=== PATIENT | male | born 1945 | race Caucasian/White ===

== ENCOUNTER 2019-12-03 08:47 | Outpatient (CLI) | payer BC ==
--- NOTE | 2019-12-03 10:49 | CT ---
CT chest with IV contrast CT abdomen and pelvis with IV and oral contrast HISTORY: Chronic lymphocytic leukemia not having achieved remission. New adenopathy of the axilla and groin. FINDINGS: No comparison available. No parenchymal lung mass, pneumothorax, or focal infiltrate. There is calcification within the arterial structures including the coronary arteries. Nonenlarged, nonspecific lymph nodes are scattered throughout the mediastinum. A small amount of the upper stomach lies above the level of the diaphragm, with oral contrast evident in the hiatal hernia and esophagus. Throughout each axilla, bulky, partially confluent adenopathy correlates with the clinical history. T he largest lymph nodes on the right measure up to 4.7 cm greatest diameter and on the left 3.4 cm. Slightly enlarged lymph nodes are also evident at the base of each side of the neck. The spleen measures up to 21.3 cm length without focal abnormality. Scattered slightly enlarged lymph nodes are present throughout the mesentery, measuring up to 1.2 cm greatest diameter. Enlarged lymph nodes are also scattered throughout the retroperitoneum, measuring up to 2.1 cm greatest diamet er at the left common iliac chain. Larger lymph nodes are present along each external iliac chain, measuring up to 5.4 cm on the right a nd 3.6 cm on the left. Bulky somewhat confluent adenopathy along each inguinal chain correlates with the clinical history. Prostate gland is slightly enlarged, heterogeneous, contains dystrophic calcification, and protrudes into the bladder base. There are degenerative changes throughout the thoracolumbar spine. Most pronounced at the L4-5 level where significant central canal stenosis is apparent. IMPRESSION : Widespread, bulky partially confluent adenopathy throughout the chest, abdomen, and pelvis as detaile d above. 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 Small hiatal hernia with gastroesophageal reflux. Atherosclerosis.
== END 2019-12-03 08:48 | disposition home or self-care (01) ==
LOC: BICCT 08:47
PROVIDERS: ATTEND Internal Medicine Hematology & Oncology
DX: C91.10 Chronic lymphocytic leukemia of B-cell type not having achieved remission (principal); R59.0 Localized enlarged lymph nodes; K44.9 Diaphragmatic hernia without obstruction or gangrene; I70.90 Unspecified atherosclerosis
CPT/HCPCS: 71260; 74177; 82565

== ENCOUNTER 2020-01-26 06:53 | Emergency (ER) | payer BC, MEDICARE ==
[2020-01-26] MEDS ORDERED: Ondansetron PF 4 MG/2 ML Vial ONE (07:26)
[2020-01-26] MEDS ORDERED: Morphine 4 MG/ML VIAL ONE (07:26)
[2020-01-26 07:53] LABS: ALT (SGPT) 17 U/L (8-55); AST (SGOT) 22 U/L (5-34); Albumin 4.3 g/dL (3.4-4.8); Alkaline Phosphatase 104 U/L (40-110); Anion Gap 15 mmol/L (10-20); BUN (Urea Nitrogen) 20 mg/dL (8.4-25.7); Bilirubin, Total 0.3 mg/dL (0.2-1.2); Calc. Creatinine Clearance 0 mL/min (70-130); Calcium 9.3 mg/dL (7.8-10.44); Carbon Dioxide 22 mmol/L (23-31); Chloride 107 mmol/L (98-107); Estimated GFR-MDRD 63; Globulin 2.6 g/dL (2.4-3.5); Glucose 128 mg/dL (83-110); Lipase 28 U/L (8-78); Potassium 4.8 mmol/L (3.5-5.1); Protein, Total 6.9 g/dL (5.8-8.1); Sodium 139 mmol/L (136-145)
[2020-01-26 08:06] LABS: Hemoglobin 11.4 g/dL (14.0-18.0); Lymphocytes 97 % (21-51); MDiff Complete? YES; Mean Corpuscular HGB CONC 28.2 g/dL (32.0-36.0); Mean Corpuscular Hemoglobin 26.5 pg (27.0-31.0); Mean Corpuscular Volume 93.9 fL (78.0-98.0); Mean Platelet Volume 9.5 fL (7.4-10.4); Monocytes 1 % (0-10); Neutrophil 2 % (42-75); Platelet Count 205 thou/uL (130-400); RBC Distribution Width 12.9 % (11.5-14.5); Red Blood Cell (RBC) Count 4.31 mill/uL (4.70-6.10)
[2020-01-26 08:38] LABS: Bilirubin Negative (Negative); Blood, Urine Negative (Negative); Clarity Clear (Clear); Glucose, Urine (Dipstick) Normal (Negative); Ketone, Urine Negative (Negative); Leukocyte Negative Leu/uL (Negative); Nitrite Negative (Negative); Protein, Urine (Dipstick) Negative (Neg-Trace); Specific Gravity, Urine 1.016 (1.002-1.036); Urobilinogen Normal mg/dL (Less than 2); pH, Urine 6.5 (5.0-9.0)
[2020-01-26] MEDS ORDERED: Iopamidol-370 76% 500 ML 1 ML ONE (09:23)
--- NOTE | 2020-01-26 11:06 | CT ---
CT ABDOMEN AND PELVIS WITH IV CONTRAST: Date: 01/26/2020 HISTORY: Abdominal pain. Comparison made to recent CT abdomen and pelvis of 12/03/2019. That exam described diffuse abdominal adenopathy with splenomegaly concerning for lymphoma. FINDINGS: Lung bases clear. The liver and pancreas are unremarkable. Splenomegaly again noted. Adrenal glands and kidneys unremarkable. Small and large bowel loops appear unremarkable. Appendix is normal. The abdominal adenopathy is again noted with periaortic adenopathy seen in the mid abdomen. Prostatic hypertrophy is again noted. No evidence of interval change. IMPRESSION: 1. Splenomegaly. 2. Retroperitoneal adenopathy. 3. Prostatic hypertrophy. Findings stable from 12/03/2019. POS: [facility]
== END 2020-01-26 09:35 | disposition home or self-care (01) ==
LOC: ERS 06:53
DX: R10.13 Epigastric pain (principal); R10.12 Left upper quadrant pain; R10.11 Right upper quadrant pain
CPT/HCPCS: 36415; 74177; 80053; 81003; 83690; 84484; 85025; 93005; 96361; 96374; 96375; J2270; J2405; Q9967

== ENCOUNTER 2023-03-03 08:49 | Outpatient (CLI) | payer BC ==
[2023-03-03] MEDS ORDERED: Iopamidol 370 76% 100 ML VIAL ONE (09:58)
== END 2023-03-03 08:50 | disposition home or self-care (01) ==
LOC: CT 08:49
PROVIDERS: ATTEND Family Medicine
DX: R31.0 Gross hematuria (principal); R16.1 Splenomegaly, not elsewhere classified; M48.061 Spinal stenosis, lumbar region without neurogenic claudication; R59.0 Localized enlarged lymph nodes; K80.11 Calculus of gallbladder with chronic cholecystitis with obstruction; N40.0 Benign prostatic hyperplasia without lower urinary tract symptoms; N04.9 Nephrotic syndrome with unspecified morphologic changes; N28.89 Other specified disorders of kidney and ureter
CPT/HCPCS: 74178

== ENCOUNTER 2023-03-18 20:50 | Inpatient (IN) | payer BC, MEDICARE ==
[2023-03-18 22:20] LABS: Hematocrit 39.1 % (42.0-52.0); Hemoglobin 12.4 g/dL (14.0-18.0); Mean Corpuscular HGB CONC 31.7 g/dL (32.0-36.0); Mean Corpuscular Hemoglobin 29.7 pg (27.0-31.0); Mean Corpuscular Volume 93.5 fl (78.0-98.0); Mean Platelet Volume 11.1 fL (7.4-10.4); Platelet Count 233 10x3/uL (130-400); RBC Distribution Width 14.1 % (11.5-14.5); Red Blood Cell (RBC) Count 4.18 mill/uL (4.70-6.10); White Blood Cell (WBC) Count 11.4 10x3/uL (4.8-10.8)
[2023-03-18 22:36] LABS: Delete Auto Diff?? YES; Manual Diff?? YES
[2023-03-18 22:40] LABS: ALT (SGPT) 12 U/L (8-55); AST (SGOT) 17 U/L (5-34); Alkaline Phosphatase 103 U/L (40-110); Anion Gap 11 mmol/L (10-20); BUN (Urea Nitrogen) 14 mg/dL (8.4-25.7); Bilirubin, Total 0.4 mg/dL (0.2-1.2); Calc. Creatinine Clearance 0 mL/min (70-130); Calcium 8.9 mg/dL (7.8-10.44); Carbon Dioxide 26 mmol/L (23-31); Chloride 105 mmol/L (98-107); Estimated GFR 58; Globulin 2.5 g/dL (2.4-3.5); Glucose 127 mg/dL (83-110); Lipase 21 U/L (8-78); Potassium 4.1 mmol/L (3.5-5.1); Protein, Total 6.5 g/dL (5.8-8.1); Sodium 138 mmol/L (136-145)
[2023-03-18 23:08] LABS: Anisocytosis SLIGHT = 6-15 cells HPF (0-5); Band 8 % (5-11); CellaVision Operator ID LAB.JMM; Lymphocytes 20 % (21-51); Macrocytosis SLIGHT = 6-15 cells HPF (0-5); Monocytes 7 % (0-10); Neutrophil 65 % (42-75); Ovalocytes SLIGHT = 2-5 cells HPF (0-1); Platelet Adequacy Comment Platelets Normal; Polychromasia SLIGHT = 2-3 cells HPF (0-2); Total Cell Count 100
[2023-03-19] MEDS ORDERED: Morphine 4 MG/ML VIAL ONE ×2 (01:41→04:35)
[2023-03-19] MEDS ORDERED: Ondansetron PF 4 MG/2 ML Vial ONE ×2 (01:41→14:04)
[2023-03-19 02:31] LABS: Bacteria/HPF None Seen HPF (None Seen); Bilirubin Negative (Negative); Blood, Urine 1+ (Negative); CAUTI Indications for Culture Fever or rigors; Clarity Clear (Clear); Glucose, Urine (Dipstick) Normal (Negative); Ketone, Urine Negative (Negative); Leukocyte 75 Leu/uL (Negative); Nitrite Negative (Negative); Protein, Urine (Dipstick) 20 mg/dL (Neg-Trace); Specific Gravity, Urine 1.015 (1.002-1.036); Squamous Epithelial None Seen HPF (0-3); Urobilinogen Normal mg/dL (Less than 2)
[2023-03-19 02:34] LABS: Urine Culture Reflex No No
[2023-03-19] MEDS ORDERED: metroNIDAZOLE 500 MG/100 ML BAG ONE (05:42)
[2023-03-19] MEDS ORDERED: LevoFLOXacin 750 mg/D5W 150 ml Premix Bag ONE (05:59)
[2023-03-19 06:39] LABS: PTT 27.9 sec (22.9-36.1); Prothrombin Time 13.9 sec (12.0-14.7)
[2023-03-19 07:27] VITALS: BMI 24.3
[2023-03-19] MEDS ORDERED: Morphine 4 MG/ML VIAL SLOW IVP PRN (07:33)
[2023-03-19] MEDS ORDERED: Ondansetron PF 4 MG/2 ML Vial IVP PRN (07:45)
[2023-03-19] MEDS ORDERED: Ondansetron ODT 4 MG TAB SL PRN (07:45)
[2023-03-19] MEDS ORDERED: traMADol HCl 50 MG TAB PO PRN (08:36)
[2023-03-19] MEDS ORDERED: cefOXitin 2 GM in Sodium Chloride 0.9% 100 ML IVPB SCH (08:45)
[2023-03-19] MEDS: D5 1/2 NS w/20 mEq KCL 1,000 ML IV SCH ×2 (08:49→17:02)
[2023-03-19] MEDS ORDERED: Iopamidol 370 76% 100 ML VIAL ONE (08:51)
[2023-03-19] MEDS: Acetaminophen 325 MG TAB PO SCH ×3 (08:57→21:23)
[2023-03-19] MEDS ORDERED: Sodium Chloride 0.9% 100 ML ONE (13:38)
[2023-03-19] MEDS ORDERED: cefOXitin 2 GM VIAL ONE (13:38)
[2023-03-19] MEDS ORDERED: EPINEPHrine 1 MG/ML AMP ONE (13:38)
[2023-03-19] MEDS ORDERED: Bupivacaine 0.25% HCL 30 ML VIAL ONE (13:38)
[2023-03-19] MEDS ORDERED: fentaNYL PF 100 MCG/2 ML SYRINGE ONE (13:42)
[2023-03-19] MEDS ORDERED: Glycopyrrolate 0.2 MG/ML 5 ML SYRINGE ONE (14:04)
[2023-03-19] MEDS ORDERED: PHENYLEPHRINE-NS 100 MCG/ML 10 ML SYRINGE ONE (14:04)
[2023-03-19] MEDS ORDERED: ePHEDrine Sulfate 50 MG/10 ML VIAL ONE (14:04)
[2023-03-19] MEDS ORDERED: Lidocaine 1% PF 5 ML VIAL ONE (14:04)
[2023-03-19] MEDS ORDERED: Dexamethasone 20 MG/5 ML VIAL ONE (14:04)
[2023-03-19] MEDS ORDERED: NEOSTIGMINE 3 MG/3 ML SYR 3 MG/3 ML SYRINGE ONE (14:04)
[2023-03-19] MEDS ORDERED: Rocuronium Bromide 10 MG/ML (10ML VIAL) ONE (14:04)
[2023-03-19] MEDS ORDERED: PROPOFOL 200 MG/20 ML VIAL ONE (14:04)
[2023-03-19] MEDS ORDERED: Sevoflurane 250 ML INH ANEST BOTTLE ONE (14:20)
[2023-03-19] MEDS ORDERED: fentaNYL 50 mcg/mL 1 mL Vial ONE (15:32)
[2023-03-19] MEDS ORDERED: Promethazine HCl 25 MG/ML VIAL IM PRN (15:45)
[2023-03-19] MEDS ORDERED: Ondansetron HCl/PF 4 MG/2 ML Vial IVP PRN (15:45)
[2023-03-20] MEDS: Acetaminophen 325 MG TAB PO SCH ×2 (03:12→08:16)
[2023-03-20 09:01] VITALS: BP 99/68; TEMP 98
[2023-03-20 10:16] LABS: #Monocytes 1.2 thou/uL (0.11-0.59); %Basophils 0.1 % (0.0-1.0); %Eosinophils 0.1 % (0.0-10.0); %Lymphocytes 21.2 % (21.0-51.0); %Monocytes 10.4 % (0.0-10.0); %Neutrophils 67.6 % (42.0-75.0); Hemoglobin 10.4 g/dL (14.0-18.0); Mean Corpuscular HGB CONC 31.5 g/dL (32.0-36.0); Mean Corpuscular Hemoglobin 29.1 pg (27.0-31.0); Mean Corpuscular Volume 92.4 fl (78.0-98.0); Mean Platelet Volume 11.1 fL (7.4-10.4); Platelet Count 227 10x3/uL (130-400); RBC Distribution Width 14.2 % (11.5-14.5); Red Blood Cell (RBC) Count 3.57 mill/uL (4.70-6.10); White Blood Cell (WBC) Count 11.8 10x3/uL (4.8-10.8)
[2023-03-20 10:40] LABS: ALT (SGPT) 40 U/L (8-55); AST (SGOT) 28 U/L (5-34); Albumin 3.3 g/dL (3.4-4.8); Alkaline Phosphatase 98 U/L (40-110); Anion Gap 15 mmol/L (10-20); BUN (Urea Nitrogen) 16 mg/dL (8.4-25.7); Bilirubin, Direct 0.2 mg/dL (0.1-0.3); Bilirubin, Total 0.5 mg/dL (0.2-1.2); Calc. Creatinine Clearance 43 mL/min (70-130); Calcium 8.8 mg/dL (7.8-10.44); Carbon Dioxide 24 mmol/L (23-31); Chloride 104 mmol/L (98-107); Estimated GFR 47; Glucose 112 mg/dL (83-110); Phosphorus 3.8 mg/dL (2.3-4.7); Potassium 4.3 mmol/L (3.5-5.1); Protein, Total 5.6 g/dL (5.8-8.1); Sodium 139 mmol/L (136-145)
== END 2023-03-20 13:02 | disposition home or self-care (01) | DRG 418 ==
LOC: ERS 20:50 → OBSVTOIN 03-19 05:37 → T4-A 03-19 05:37
PROVIDERS: ADMIT Surgery; ATTEND Surgery
PROC: 0FT44ZZ Resection of Gallbladder, Percutaneous Endoscopic Approach (ICD-10-PCS; principal; 2023-03-19)
PROC: 3E033XZ Introduction of Vasopressor into Peripheral Vein, Percutaneous Approach (ICD-10-PCS; 2023-03-19)
DX: K80.12 Calculus of gallbladder with acute and chronic cholecystitis without obstruction (principal); C91.10 Chronic lymphocytic leukemia of B-cell type not having achieved remission; I10 Essential (primary) hypertension; E78.5 Hyperlipidemia, unspecified; K82.8 Other specified diseases of gallbladder; I45.10 Unspecified right bundle-branch block; Z88.0 Allergy status to penicillin; Z88.2 Allergy status to sulfonamides
CPT/HCPCS: 36415; 71045; 74177; 76705; 80048; 80053; 80076; 81001; 83690; 83735; 84100; 85025; 85610; 85730; 86850; 86900; 86901; 88304; 93005; 96365; 96367; 96375; 96376; C1713; C1889; J0171; J0694; J1100; J1956; J2270; J2405; J2704; J3010; J3480; J3490; Q9967; S0020

== ENCOUNTER 2024-05-20 08:09 | Outpatient (CLI) | payer BC | END 2024-05-20 08:10 | disposition home or self-care (01) | LOC: BICMRI 08:09 | PROVIDERS: ATTEND Family Medicine | DX: M54.16 Radiculopathy, lumbar region (principal); M43.16 Spondylolisthesis, lumbar region; M48.061 Spinal stenosis, lumbar region without neurogenic claudication | CPT/HCPCS: 72100; 72148 ==